=== PATIENT | female | born 1965 | race Caucasian/White ===

== ENCOUNTER 2016-05-26 17:22 | Emergency (ER) | payer OTHER ==
[~2016-05-26] VITALS: Ht 162.6 cm; Wt 82.0 kg
[~2016-05-26 17:22] MED LIST: ALBU8.5H3 INH; ALLERGY MED; ANXIETY MED; BACTDS PO; CEPH-443 PO; IBUP-1542 PO; PANT40TA4 PO; PRED20TA PO; [UNRECOGNIZED DRUG - REMARK]; [UNRECOGNIZED DRUG - REMARK]
[2016-05-26 17:25] VITALS: Ht 162.6 cm; Wt 82.0 kg
[2016-05-26] MEDS ORDERED: KETOROLAC 30 MG INJ IV STA ×2 (18:53→21:25)
[2016-05-26] MEDS ORDERED: SOD CHLORIDE 0.9% 1,000 ML IV STA (18:53)
[2016-05-26] MEDS ORDERED: ONDANSETRON 4 MG INJ IV STA (18:53)
[2016-05-26 19:26] LABS: ADD SCAN DIFF NO
[2016-05-26 19:27] LABS: BASOPHILS % 0.1 % (0.0-2.0); EOSINOPHILS # 0.1 10^3/ul (0.0-0.5); EOSINOPHILS % 1.8 % (0.0-7.0); HEMATOCRIT 36.5 % (37.0-47.0); HEMOGLOBIN 10.7 g/dl (12.0-16.0); LYMPHOCYTES # 2.9 10^3/ul (0.8-2.9); LYMPHOCYTES % 37.3 % (15.0-51.0); MEAN CORPUSCULAR HEMOGLOBIN 20.9 pg (29.0-33.0); MEAN CORPUSCULAR HGB CONC 29.3 g/dl (32.0-37.0); MEAN CORPUSCULAR VOLUME 71.4 fl (82.0-101.0); MEAN PLATELET VOLUME 11.7 fl (7.4-10.4); MONOCYTE # 0.6 10^3/ul (0.3-0.9); MONOCYTES % 7.4 % (0.0-11.0); NEUTROPHIL # 4.1 10^3/ul (1.6-7.5); NEUTROPHILS % 53.3 % (39.0-77.0); PLATELET COUNT 274 10^3/UL (140-415); RED BLOOD COUNT 5.11 10^6/ul (4.20-5.40); RED CELL DISTRIBUTION WIDTH 16.9 % (11.5-14.5); WHITE BLOOD COUNT 7.7 10^3/ul (4.8-10.8)
[2016-05-26] MEDS ORDERED: morphine 4 MG/ML VIAL IV STA (19:31)
[2016-05-26 19:42] LABS: ALBUMIN 4.5 g/dl (3.3-4.9)
[2016-05-26 19:43] LABS: POTASSIUM 3.6 mmol/L (3.5-5.1)
[2016-05-26 19:45] LABS: ALBUMIN/GLOBULIN RATIO 1.21; BILIRUBIN,INDIRECT 0.6 mg/dl (0-1.1); BILIRUBIN,TOTAL 0.6 mg/dl (0.2-1.3); CREATININE 0.64 mg/dl (0.44-1.00); TOTAL PROTEIN 8.2 g/dl (6.1-8.1)
[2016-05-26 19:46] LABS: CALCIUM 9.3 mg/dl (8.4-10.2)
--- NOTE | 2016-05-26 20:09 | ERD ---
ER Documentation Chief Complaint Date/Time DATE: 05/26/16 TIME: 20:06 Chief Complaint ABDOMINAL PAIN WITH NAUSEA SINCE THURSDAY HPI Patient is a 50-year-old female with past medical history of asthma, migraine headaches, depression who presents to the emergency department with lower abdominal pain 9 days. Patient states the pain is primarily in the bilateral lower quadrants and suprapubic region. Patient states the pain is constant. Patient states that her current pain level is a 10 out of 10. Patient reports taking Tylenol with minimal alleviation of symptoms. Patient admits to nausea however she denies any vomiting. Patient denies any fevers, chills, chest pain , shortness of breath, pain with urination, diarrhea. Patient reports normal bowel movements. Last bowel movement 2 hours ago. Patient states she is currently on her menstrual period. ROS All systems reviewed and are negative except as per history of present illness. Medications Home Meds Active Scripts Ibuprofen* (Motrin*) 600 Mg Tab, 600 MG PO Q6, #30 TAB Prov:FRACISCO SANTIAGO PA-C 05/26/16 Ibuprofen* (Motrin*) 600 Mg Tab, 600 MG PO Q6, #20 TAB Prov:GREGORIA MARTINES PA-C 07/09/15 Albuterol Sulfate* (Proair HFA*) 8.5 Gm Hfa.aer.ad, 2 PUFF INH Q4, #1 INHALER Prov:GREGORIA MARTINES PA-C 07/09/15 Prednisone* (Prednisone*) 20 Mg Tab, 40 MG PO DAILY for 4 Days, TAB Prov:GREGORIA MARTINES PA-C 07/09/15 Cephalexin* (Keflex*) 500 Mg Capsule, 500 MG PO Q6 for 7 Days, CAP Prov:GEREMIAS TONY 01/16/15 Sulfamethoxazole-Trimethoprim* (Bactrim* DS) 800-160 Mg Tab, 1 TAB PO BID for 7 Days, TAB Prov:GEREMIAS TONY 01/16/15 Pantoprazole (Protonix) 40 Mg Tabec, 40 MG PO DAILY for GASTROINTESTINAL UPSET, #60 Prov:VINITA HERNÁNDEZ MD 11/01/13 Reported Medications [Inhaler?] No Conflict Check 10/30/11 [Pain Med?] No Conflict Check 10/30/11 [Allergy Med] No Conflict Check 10/30/11 [Anxiety Med] No Conflict Check 10/30/11 Allergies Allergies: Coded Allergies: No Known Allergy (Verified , 05/26/16) PMhx/Soc History of Surgery: Yes ( 2008) Anesthesia Reaction: No Hx Neurological Disorder: No Hx Respiratory Disorders: Yes (ASTHMA) Hx Cardiac Disorders: No Hx Psychiatric Problems: No Hx Miscellaneous Medical Probl: No Hx Alcohol Use: No Hx Substance Use: No Hx Tobacco Use: No Smoking Status: Never smoker FmHx Family History: diabetes Physical Exam Vitals Vital Signs Date Time Temp Pulse Resp B/P Pulse Ox O2 Delivery O2 Flow Rate FiO2 05/27/16 02:37 98.9 77 17 116/56 99 Room Air 05/26/16 17:25 98.3 89 18 126/71 96 Physical Exam GENERAL: Well-developed, well-nourished female. Appears in no acute distress. HEAD: Normocephalic, atraumatic. EYES: Pupils are equally reactive bilaterally. EOMs grossly intact. No conjunctival erythema. ENT: Moist mucous membranes. No uvula deviation. No kissing tonsils. NECK: Supple. No meningismus. Normal range of motion of the neck. LUNG: Clear to auscultation bilaterally. No rhonchi, wheezing, rales or coarse breath sounds. HEART: Regular rate and rhythm. No murmurs, rubs or gallops. ABDOMEN: No scars, ecchymosis or rashes noted. Soft, nondistended. Tender to palpation in the bilateral lower quadrants, suprapubic region. Positive bowel sounds in all four quadrants. No rebound tenderness, no guarding. (-) McBurney' s point tenderness. No CVA tenderness. BACK: No midline tenderness. EXTREMITIES: Equal pulses bilaterally. No peripheral clubbing, cyanosis or edema. No unilateral leg swelling. NEUROLOGIC: Alert and oriented. Moving all four extremities without any difficulty. Normal speech. Steady gait. SKIN: Normal color. Warm and dry. No rashes or lesions. Result Diagram: 05/26/16192405/26/161924 Results 24 hrs Laboratory Tests Test 05/26/16 19:25 05/26/16 22:27 White Blood Count 7.710^3/ul Red Blood Count 5.1110^6/ul Hemoglobin 10.7g/dl Hematocrit 36.5% Mean Corpuscular Volume 71.4fl Mean Corpuscular Hemoglobin 20.9pg Mean Corpuscular Hemoglobin Concent 29.3g/dl Red Cell Distribution Width 16.9% Platelet Count 14849^3/UL Mean Platelet Volume 11.7fl Neutrophils % 53.3% Lymphocytes % 37.3% Monocytes % 7.4% Eosinophils % 1.8% Basophils % 0.1% Nucleated Red Blood Cells % 0.0/100WBC Neutrophils # 4.110^3/ul Lymphocytes # 2.910^3/ul Monocytes # 0.610^3/ul Eosinophils # 0.110^3/ul Basophils # 0.010^3/ul Nucleated Red Blood Cells # 0.010^3/ul Sodium Level 140mmol/L Potassium Level 3.6mmol/L Chloride Level 103mmol/L Carbon Dioxide Level 25mmol/L Anion Gap 16 Blood Urea Nitrogen 11mg/dl Creatinine 0.64mg/dl Glucose Level 96mg/dl Calcium Level 9.3mg/dl Total Bilirubin 0.6mg/dl Direct Bilirubin 0.00mg/dl Indirect Bilirubin 0.6mg/dl Aspartate Amino Transf (AST/SGOT) 28IU/L Alanine Aminotransferase (ALT/SGPT) 36IU/L Alkaline Phosphatase 98IU/L Total Protein 8.2g/dl Albumin 4.5g/dl Globulin 3.70g/dl Albumin/Globulin Ratio 1.21 Lipase 72U/L Bedside Urine pH (LAB) 6.5 Bedside Urine Protein (LAB) Negative Bedside Urine Glucose (UA) Negative Bedside Urine Ketones (LAB) Negative Bedside Urine Blood 1+ Bedside Urine Nitrite (LAB) Negative Bedside Urine Leukocyte Esterase (L Negative Current Medications Medications (Trade) Dose Ordered Sig/Alexandro Route PRN Reason Start Time Stop Time Status Last Admin Dose Admin Sodium Chloride (NS) 1,000 ml @ 1,000 mls/hr Q1H STAT IV 05/26/16 18:53 05/26/16 19:52 DC 05/26/16 19:20 Ondansetron HCl (Zofran Inj) 4 mg ONCE STAT IV 05/26/16 18:53 05/26/16 18:56 DC 05/26/16 19:20 Ketorolac Tromethamine (Toradol) 30 mg ONCE STAT IV 05/26/16 18:53 05/26/16 19:33 DC Morphine Sulfate (morphine) 4 mg ONCE STAT IV 05/26/16 19:31 05/26/16 19:32 DC 05/26/16 19:35 Ketorolac Tromethamine (Toradol) 30 mg ONCE STAT IV 05/26/16 21:25 05/26/16 21:26 DC 05/26/16 21:29 Procedures/MDM ED COURSE: The patient was stable throughout ED course. I kept the patient and/or family informed of laboratory and diagnostic imaging results throughout the ED course. Initially orders were placed for Toradol. Patient was unable provide urine sample and stated that Toradol would not help with her pain. Patient requested stronger pain meds. Prior to administrating the morphine to the patient, myself as well as the nursing staff both individually asked the patient to ensure that she had a ride home for the safety of all including herself and her daughters. Patient stated that her older daughter would come to pick her and her family up at time of discharge. At that time, morphine order was placed. Upon reexamining the patient and discussing blood work and CT results with the patient, patient stated that she continued to have severe pain. Patient requested additional pain medications. Patient wished for pelvic ultrasound. I myself asked the patient if her daughter was still on her way. At that time, patient stated that her daughter was "still on her way" but had not arrived yet because of the "results pending." Pelvic US was ordered and orders placed for Toradol. Soon after, community service technician arrived to take patient for pelvic ultrasound study. At that time, patient refused ultrasound and stated she wished to go home. I advised the patient that I or nursing staff would need to see her older daughter to prior to discharging the patient. At that time, patient was augmentative and said "her older daughter was waiting for her and left because it took too long to get her discharge paperwork. It is unclear whether or not the patient's daughter did present to the ED or not. Given that the patient did have her younger daughters with her, the patient was not discharged until greater than 6 hours after receiving the morphine. Patient appeared stable at the time of discharge. Patient was A x O x 3, fully coherent. DIAGNOSTIC IMAGING: Read by radiologist. DIAGNOSTIC IMAGING REPORT Patient: TIFFANY CHOU : 1965 Age: 50 Sex: F MR #: [id number] DOS: 05/26/16 1853 Ordering MD: FRACISCO SANTIAGO PA-C Location: [facility] Room/Bed: PROCEDURE: CT Abdomen and Pelvis without contrast CLINICAL INDICATION: Abdominal pain TECHNIQUE: Transaxial images were obtained through the abdomen and pelvis on a multi-slice scanner without the intravenous contrast administration. No oral contrast had previously been given. Sagittal and coronal re-formations were subsequently reconstructed. One or more of the following dose reduction techniques were used: - Automated exposure control. - Adjustment of the mA and/or kV according to patient size. - Use of iterative reconstruction technique. Radiation dose: CTDIvol = 16.61 mGy; DLP = 907.32 mGy-cm. COMPARISON: 01/16/2015 FINDINGS: Lung bases: The visualized lung bases appear unremarkable. Liver: The liver is enlarged but no focal lesion is identified. Gallbladder: The wall is not thickened. No radiopaque stones are identified. Bile ducts: The intra and extrahepatic bile ducts are normal in caliber. Pancreas: Appears normal with no mass or inflammation evident. Spleen: Normal in size with no focal lesion. Adrenals: Normal with no mass identified. Kidneys, ureters and bladder: The kidneys are normal in size and there is no mass, pathological calcification, or hydronephrosis evident. There is no perinephric stranding. The ureters are normal in caliber and no ureteroliths are identified. The bladder appears unremarkable. Reproductive organs: The uterus remains midline. No adnexal mass is evident. Stomach and bowel: There is a moderate sized hiatal hernia. There is no evidence of bowel obstruction or inflammation. Appendix: There appears to be a previous appendectomy. Peritoneum: No free intraperitoneal fluid or air is identified. Aorta: Normal in caliber with no aneurysmal dilatation. IVC: Unremarkable. Lymph nodes: No pathologically enlarged nodes are identified. Osseous structures: Exaggerated lordotic curve to the lumbar spine with mild degenerative endplate changes. IMPRESSION: 1. Since the previous CT of 01/16/2015, there is again a moderate sized hiatal hernia. There is no evidence of bowel obstruction or inflammation and there appears to have been an interval appendectomy. 2. Persistent hepatomegaly with no focal lesion. 3. There is again no evidence of urinary outflow obstruction or ureterolithiasis within normal appearing bladder. 4. There is no longer a right anterolateral dermal abscess at the level of the pelvic inlet and there is no longer inflammation within the adjacent subcutaneous fat. 5. There is again an exaggerated lordotic curve to the lumbar spine with mild degenerative changes evident. Physician Trace Date Time Electronically viewed and signed by Physician Trace on 05/26/2016 20:58 RH/ CC: FRACISCO SANTIAGO PA-C PROCEDURES: None. MEDICATIONS GIVEN: IV fluids, Zofran, Morphine, Toradol. Patient tolerated medication well with no adverse reactions. MEDICAL DECISION MAKING: This is a 50-year-old female who presents with lower abdominal pain 7 days with nausea.. Vital signs were reviewed. Patient is afebrile. CBC showed no evidence of systemic infection. Patient's hemoglobin level was noted to be 10.7 , hematocrit of 36.5. CMP showed no evidence of electrolyte abnormalities, severe acidosis, alkalosis, renal failure, or liver disease. Lipase showed no evidence of acute pancreatitis. UA showed no evidence of acute infection or hematuria. Low suspicion for UTI, pyelonephritis or nephrolithiasis. Urine test was negative. . CT imaging of the abdomen and pelvis showed Since the previous CT of 01/16/2015, there is again a moderate sized hiatal hernia. There is no evidence of bowel obstruction or inflammation and there appears to have been an interval appendectomy. Persistent hepatomegaly with no focal lesion. There is again no evidence of urinary outflow obstruction or ureterolithiasis within normal appearing bladder. There is no longer a right anterolateral dermal abscess at the level of the pelvic inlet and there is no longer inflammation within the adjacent subcutaneous fat. There is again an exaggerated lordotic curve to the lumbar spine with mild degenerative changes evident. At this time, patient's presentation is most consistent with abdominal pain of unknown etiology. Cannot rule out PID, ovarian torsion or abscess given that patient refused pelvic ultrasound. I have a much lower clinical concern for acute coronary syndrome, AAA, mesenteric ischemia, lower lobe pneumonia, DKA, bowel perforation, cholecystitis, choledocholithiasis, ascending cholangitis, hepatic abscess, pancreatitis, PUD, gastritis, GERD, splenic rupture, diverticulitis, UTI, pyelonephritis, nephrolithiasis. PRESCRIPTIONS: Ibuprofen DISCHARGE: At this time, patient is stable for discharge and outpatient management. I have instructed the patient to follow-up with his/her primary care physician in 1-2 days. Patient was given a copy of all imaging and blood work obtained today. Patient advised that she may need to follow up with GI specialist for her symptoms. I have instructed the patient to promptly return to the ER at any time for any new or worsening symptoms including increased pain, nausea, vomiting, diarrhea, fever, weakness or LOC. The patient and/or family expressed understanding of and agreement with this plan. All questions were answered. Home care instructions were provided. Departure Diagnosis: Primary Impression: Abdominal pain Abdominal location: lower abdomen, unspecified Qualified Code: R10.30 - Lower abdominal pain Condition: Stable Patient Instructions: Abdominal Pain Referrals: JANNA WALL (PCP) [facility] YOU HAVE RECEIVED A MEDICAL SCREENING EXAM AND THE RESULTS INDICATE THAT YOU DO NOT HAVE A CONDITION THAT REQUIRES URGENT TREATMENT IN THE EMERGENCY DEPARTMENT. FURTHER EVALUATION AND TREATMENT OF YOUR CONDITION CAN WAIT UNTIL YOU ARE SEEN IN YOUR DOCTORS OFFICE WITHIN THE NEXT 1-2 DAYS. IT IS YOUR RESPONSIBILITY TO MAKE AN APPOINTMENT FOR FOLOW-UP CARE. IF YOU HAVE A PRIMARY DOCTOR --you should call your primary doctor and schedule an appointment IF YOU DO NOT HAVE A PRIMARY DOCTOR YOU CAN CALL OUR PHYSICIAN REFERRAL HOTLINE AT IF YOU CAN NOT AFFORD TO SEE A PHYSICIAN YOU CAN CHOSE FROM THE FOLLOWING [facility] [address] [facility]. [facility] [address] [facility] [address] [facility] [address] [facility] [address] [facility]. [facility]. [address] [facility]. [facility] YOU HAVE RECEIVED A MEDICAL SCREENING EXAM AND THE RESULTS INDICATE THAT YOU DO NOT HAVE A CONDITION THAT REQUIRES URGENT TREATMENT IN THE EMERGENCY DEPARTMENT. FURTHER EVALUATION AND TREATMENT OF YOUR CONDITION CAN WAIT UNTIL YOU ARE SEEN IN YOUR DOCTORS OFFICE WITHIN THE NEXT 1-2 DAYS. IT IS YOUR RESPONSIBILITY TO MAKE AN APPOINTMENT FOR FOLOW-UP CARE. IF YOU HAVE A PRIMARY DOCTOR --you should call your primary doctor and schedule and appointment IF YOU DO NOT HAVE A PRIMARY DOCTOR YOU CAN CALL OUR PHYSICIAN REFERRAL HOTLINE AT . IF YOU CAN NOT AFFORD TO SEE A PHYSICIAN YOU CAN CHOSE FROM THE FOLLOWING [facility] INSTITUTIONS: [facility] [address] [place] [address] [facility] [address] [place] [address] [facility] [address] [place] [address] Additional Instructions: Llame al doctor MAANA y lisbeth ernesto ISABEL PARA DENTRO DE 1-2 PEDROZA.Dgale a la secretaria que nosotros le instruimos hacer esta isabel.Avise o llame si garcia condicin se empeora antes de la isabel. Regresa aqui si peor o no mejor. FRACISCO SANTIAGO PA-C May 26, 2016 20:09 FRACISCO SANTIAGO PA-C May 26, 2016 20:09
--- NOTE | 2016-05-26 20:58 | RADRPT ---
PROCEDURE: CT Abdomen and Pelvis without contrast CLINICAL INDICATION: Abdominal pain TECHNIQUE: Transaxial images were obtained through the abdomen and pelvis on a multi-slice scanner without the intravenous contrast administration. No oral contrast had previously been given. Sagit valentina and coronal re-formations were subsequently reconstructed. One or more of the following dose reduction techniques were used: - Automated exposure control. - Adjustment of the mA and/or kV according to patient size. - Use of iterative reconstruction technique. Radiation dose: CTDIvol = 16.61 mGy; DLP = 907.32 mGy-cm. COMPARISON: 01/16/2015 FINDINGS: Lung bases: The visualized lung bases appear unremarkable. Liver: The liver is enlarged but no focal lesion is identified. Gallbladder: The wall is not thickened. No radiopaque stones are identified. Bile ducts: The intra and extrahepatic bile ducts are normal in caliber. Pancreas: Appears normal with no mass or inflammation evident. Spleen: Normal in size with no focal lesion. Adrenals: Normal with no mass identified. Kidneys, ureters and bladder: The kidneys are normal in size and there is no mass, pathological calc ification, or hydronephrosis evident. There is no perinephric stranding. The ureters are normal in c aliber and no ureteroliths are identified. The bladder appears unremarkable. Reproductive organs: The uterus remains midline. No adnexal mass is evident. Stomach and bowel: There is a moderate sized hiatal hernia. There is no evidence of bowel obstructi on or inflammation. Appendix: There appears to be a previous appendectomy. Peritoneum: No free intraperitoneal fluid or air is identified. Aorta: Normal in caliber with no aneurysmal dilatation. IVC: Unremarkable. Lymph nodes: No pathologically enlarged nodes are identified. Osseous structures: Exaggerated lordotic curve to the lumbar spine with mild degenerative endplate c hanges. IMPRESSION: 1. Since the previous CT of 01/16/2015, there is again a moderate sized hiatal hernia. There is no evidence of bowel obstruction or inflammation and there appears to have been an interval appendecto my. 2. Persistent hepatomegaly with no focal lesion. 3. There is again no evidence of urinary outflow obstruction or ureterolithiasis within normal appe aring bladder. 4. There is no longer a right anterolateral dermal abscess at the level of the pelvic inlet and the re is no longer inflammation within the adjacent subcutaneous fat. 5. There is again an exaggerated lordotic curve to the lumbar spine with mild degenerative changes evident. Georgina Mc Physician Date Time Electronically viewed and signed by Georgina Mc Physician on 05/26/2016 20:58 /
[2016-05-26 22:27] LABS: URINE BLOOD (Dip) POC 1+ (NEGATIVE)
[2016-05-26] MEDS ORDERED: IBUP-1542 PO (23:23)
[2016-05-27 02:37] VITALS: BP 116/56; PULSE 77; RESP 17; TEMP 98.9
== END 2016-05-27 02:38 | disposition home or self-care (01) ==
LOC: FTE 17:22
DX: R10.30 Lower abdominal pain, unspecified (principal); J45.909 Unspecified asthma, uncomplicated; R10.2 Pelvic and perineal pain; R11.0 Nausea
CPT/HCPCS: 36415; 74176; 80053; 81003; 83690; 85025; 96374; 96375; J2270; J2405; J7030; Z7502; J1885

== ENCOUNTER 2017-01-01 15:25 | Emergency (ER) | payer OTHER ==
[~2017-01-01] VITALS: Ht 157.5 cm; Wt 86.4 kg
[2017-01-01 15:36] VITALS: Ht 157.5 cm; Wt 86.4 kg
--- NOTE | 2017-01-01 16:51 | ERD ---
ER Documentation Chief Complaint Chief Complaint BIB SELF C/O COUGH AND CONGESTION X YESTERDAY. CHEST PAIN AND SOB W COUGH HPI This is a 51 year-old female who presents the emergency department today complaining of shortness of breath and a cough congestion that started last night. Patient states that she does have some chest pain but it is provoked by the cough. States she has not taken any medication. States that she does have a history of asthma and uses an inhaler. States she thinks she has had a fever. States she has some body ache ROS All systems reviewed and are negative except as per history of present illness. Medications Home Meds Active Scripts Fluticasone Propionate (Flonase Allergy Relief) 9.9 Ml [place].susp, 2 SPRAY NASAL DAILY, #1 BOTTLE TO EACH NOSTRIL Prov:DOTTIE CHRISTIAN PA-C 01/01/17 Guaifenesin-Dextromethorphan* (Robitussin* DM) 100MG/10MG/5ML Syrup, 10 ML PO Q6H Y for COUGH for 7 Days, ML Prov:DOTTIE CHRISTIAN PA-C 01/01/17 Naproxen* (Naprosyn*) 500 Mg Tablet, 500 MG PO BID Y for PAIN AND/OR INFLAMMATION, #30 TAB Prov:DOTTIE CHRISTIAN PA-C 01/01/17 Ibuprofen* (Motrin*) 600 Mg Tab, 600 MG PO Q6, #30 TAB Prov:FRACISCO SANTIAGO PA-C 05/26/16 Ibuprofen* (Motrin*) 600 Mg Tab, 600 MG PO Q6, #20 TAB Prov:GREGORIA MARTINES PA-C 07/09/15 Albuterol Sulfate* (Proair HFA*) 8.5 Gm Hfa.aer.ad, 2 PUFF INH Q4, #1 INHALER Prov:GREGORIA MARTINES PA-C 07/09/15 Prednisone* (Prednisone*) 20 Mg Tab, 40 MG PO DAILY for 4 Days, TAB Prov:GREGORIA MARTINES PA-C 07/09/15 Cephalexin* (Keflex*) 500 Mg Capsule, 500 MG PO Q6 for 7 Days, CAP Prov:GEREMIAS TONY 01/16/15 Sulfamethoxazole-Trimethoprim* (Bactrim* DS) 800-160 Mg Tab, 1 TAB PO BID for 7 Days, TAB Prov:GEREMIAS TONY 01/16/15 Pantoprazole (Protonix) 40 Mg Tabec, 40 MG PO DAILY for GASTROINTESTINAL UPSET, #60 Prov:VINITA HERNÁNDEZ MD 11/01/13 Reported Medications [Inhaler?] No Conflict Check 10/30/11 [Pain Med?] No Conflict Check 10/30/11 [Allergy Med] No Conflict Check 10/30/11 [Anxiety Med] No Conflict Check 10/30/11 Allergies Allergies: Coded Allergies: No Known Allergy (Verified , 05/26/16) PMhx/Soc History of Surgery: Yes ( 2007) Anesthesia Reaction: No Hx Neurological Disorder: No Hx Respiratory Disorders: Yes (ASTHMA) Hx Cardiac Disorders: No Hx Psychiatric Problems: No Hx Miscellaneous Medical Probl: No Hx Alcohol Use: No Hx Substance Use: No Hx Tobacco Use: No Physical Exam Vitals Vital Signs Date Time Temp Pulse Resp B/P Pulse Ox O2 Delivery O2 Flow Rate FiO2 01/01/17 17:58 98.6 86 18 120/70 98 Room Air 01/01/17 15:36 99.0 110 20 143/84 98 Physical Exam Const: NAD Head: Atraumatic Eyes: Normal Conjunctiva ENT: Ears TMs normal. Nose no drainage. Throat erythema no exudate no vesicles Neck: Full range of motion..~ No meningismus. Resp: Clear to auscultation bilaterally. No absent breath sounds. No wheezing Cardio: Regular rate and rhythm, no murmurs Abd: Soft, non tender, non distended. Normal bowel sounds Skin: No petechiae or rashes Back: No midline or flank tenderness Ext: No cyanosis, or edema Neur: Awake and alert Psych: Normal Mood and Affect Results 24 hrs Current Medications Medications (Trade) Dose Ordered Sig/Alexandro Route PRN Reason Start Time Stop Time Status Last Admin Dose Admin Ibuprofen (Motrin) 600 mg ONCE ONCE PO 01/01/17 17:00 01/01/17 17:01 DC 01/01/17 18:39 DIAGNOSTIC IMAGING REPORT Patient: TIFFANY CHOU : 1965 Age: 51 Sex: F MR #: [id number] DOS: 01/01/17 9199 Ordering MD: DOTTIE CHRISTIAN PA-C Location: [facility] Room/Bed: PROCEDURE: Chest x-ray CLINICAL INDICATION: Cough TECHNIQUE: Chest single view COMPARISON: 07/09/2015 FINDINGS: The heart is normal in size. The pulmonary vessels are normal in caliber. There is stable moderate size hiatal hernia. The lungs are clear. The costophrenic angles are sharp. The visualized bony thorax is unremarkable. IMPRESSION: No acute cardiopulmonary disease. Stable hiatal hernia RPTAT: HH .Chris Savage MD, MD Date Time Electronically viewed and signed by .Chris Savage MD, MD on 01/01/2017 17:14 .W/ CC: DOTTIE CHRISTIAN PA-C RUN DATE: 01/01/17 [facility] PAGE 1 RUN TIME: [id number] [place] [address] Urbano Covington M.D. [employer] RADHA#: [id number] Name: TIFFANY CHOU Age/Sex: 51/F Attend Dr: JALIL ESPINOZA DO Acct: [id number] MR# : [id number] : 1965 Location: [facility] Admit: 01/01/17 Specimen: [id number] Status: Complete Jenn: 01/01/17 Rcvd: 01/01 Source: [facility] Blue Descrip: Procedure Result Microbiology INFLUENZA A & B BY EIA Final INFLU A&B BY EIA INFLUENZA A NEGATIVE (Ref Range Neg) INFLUENZA B NEGATIVE (Ref Range Neg) ................................................................................ ............ Flags: Critical Hi = *H Critical Lo = *L Microbiology Abnormal = * Abnormal Hi = H Abnormal Lo = L Blood Bank Abnormal = * Susceptability Flags: S = Sensitive R = Resistant I = Intermediate END OF REPORT Procedures/MDM This is a 51-year-old female who presents emergency department today complaining of cough and congestion and shortness of breath that started last night. Patient is afebrile here in the emergency department. She was slightly tachycardic however oxygen saturation is 98%. I did recheck vitals as well as obtain an influenza swab and chest x-ray Repeat vitals showed pulse improved to 86 and oxygen saturation was maintained at 98%. Influenza a and B is negative Chest x -ray no acute pulmonary disease. Lungs are clear. There is a stable hiatal hernia. EKG interpreted by Dr. Nash rate [address] elevation. No QT prolongation. Nonspecific repol changes Low suspicion for STEMI Patient takes [place] for chronic back pain. She was given Motrin here in the emergency department. Symptoms at this time is consistent with URI likely viral. Will be given a prescription for Naprosyn, Flonase, and Robitussin. I do not feel the patient requires antibiotics at this time. Low suspicion for pneumonia, PE, abscess, pleural effusion, pneumothorax. I discussed the patient with Dr. Espinoza and he does not put the patient requires further workup at this time. Departure Diagnosis: Primary Impression: URI (upper respiratory infection) URI type: unspecified URI Qualified Code: J06.9 - Upper respiratory tract infection, unspecified type Condition: DOTTIE Luna PA-C Jan 01, 2017 16:51
[2017-01-01] MEDS ORDERED: IBUPROFEN 600 MG TAB PO ONE (17:00)
--- NOTE | 2017-01-01 17:15 | RADRPT ---
PROCEDURE: Chest x-ray CLINICAL INDICATION: Cough TECHNIQUE: Chest single view COMPARISON: 07/09/2015 FINDINGS: The heart is normal in size. The pulmonary vessels are normal in caliber. There is stable moderate size hiatal hernia. The lungs are clear. The costophrenic angles are sharp. The visualized bony th orax is unremarkable. IMPRESSION: No acute cardiopulmonary disease. Stable hiatal hernia RPTAT: HH .Chris Savage MD, MD Date Time Electronically viewed and signed by .Chris Savage MD, on 01/01/2017 17:14 .W/
[2017-01-01 17:58] VITALS: BP 120/70; PULSE 86; RESP 18; TEMP 98.6
[2017-01-01] MEDS ORDERED: NAPR-260 PO (19:04)
[2017-01-01] MEDS ORDERED: FLUT9.9S NASAL (19:05)
[2017-01-01] MEDS ORDERED: UDROBDM PO (19:05)
--- NOTE | 2017-01-03 19:38 | EN ---
Date/Time of Note Date/Time of Note DATE: 01/03/17 TIME: 19:31 ER Progress Note I placed a call to the patient today to check to see how she was feeling and patient reported feeling much better. DOTTIE CHRISTIAN PA-C Jan 03, 2017 19:38
== END 2017-01-01 19:13 | disposition home or self-care (01) ==
LOC: FTE 15:25
DX: J06.9 Acute upper respiratory infection, unspecified (principal); J45.909 Unspecified asthma, uncomplicated
CPT/HCPCS: 71010; 87400; Z7502; Z7610

== ENCOUNTER 2017-01-13 11:35 | Emergency (ER) | payer OTHER ==
[~2017-01-13] VITALS: Ht 165.1 cm; Wt 70.0 kg
[~2017-01-13 11:35] MED LIST changes: +FLUT9.9S NASAL; +NAPR-260 PO; +UDROBDM PO
[2017-01-13 11:50] VITALS: Ht 165.1 cm; Wt 70.0 kg
[2017-01-13] MEDS ORDERED: SOD CHLORIDE 0.9% 1,000 ML IV STA (11:51)
[2017-01-13] MEDS ORDERED: ONDANSETRON 4 MG INJ IV STA (11:51)
[2017-01-13] MEDS ORDERED: morphine 4 MG/ML VIAL IV STA (11:51)
[2017-01-13] MEDS ORDERED: KETOROLAC 30 MG INJ IV STA (12:35)
[2017-01-13] MEDS ORDERED: DIAZEPAM 5 MG/ML SYG IV ONE (13:00)
--- NOTE | 2017-01-13 13:26 | RADRPT ---
PROCEDURE: XR Lumbar Spine. CLINICAL INDICATION: Fall. Low back pain. TECHNIQUE: Three views of the lumbar spine are available for review COMPARISON: Abdomen pelvis CT 05/26/2016. FINDINGS: There is exaggeration of normal lumbar lordosis. Alignment is intact. No acute fracture or disloca tion is seen. The vertebral body heights are preserved. There are multilevel mild degenerative changes of lumbar s pine, most pronounced at L1-L2. There is moderate to severe discogenic disease at T11-T12 with assoc iated mild focal kyphosis. IMPRESSION: 1. No acute fracture or dislocation. 2. Multilevel discogenic disease, mild at L1-L2 and moderately severe at T11-T12. 3. Exaggerated lordosis of the lumbar spine. Mild focal kyphosis at T11-T12. RPTAT: HH .Shaylee Duggan MD, Date Time Electronically viewed and signed by .Shaylee Duggan MD, on 01/13/2017 13:25 .N/
--- NOTE | 2017-01-13 13:33 | ERD ---
ER Documentation Chief Complaint Chief Complaint BACK PAIN X 2 DAYS. HPI This is a 51-year-old female who presents to the ER for evaluation of back pain. This patient states that she slipped 2 days ago and fell on her back. She denies any head injury and states that she is having pain in her lower back. She states it is worse when she bends forward and better when she leans back. She denies any numbness or tingling in her lower extremities, denies any dizziness or any fevers or chills or urinary incontinence or urinary retention associated with this. ROS All systems reviewed and are negative except as per history of present illness. Medications Home Meds Active Scripts Fluticasone Propionate (Flonase Allergy Relief) 9.9 Ml [employer].susp, 2 SPRAY NASAL DAILY, #1 BOTTLE TO EACH NOSTRIL Prov:DOTTIE CHRISTIAN PA-C 01/01/17 Guaifenesin-Dextromethorphan* (Robitussin* DM) 100MG/10MG/5ML Syrup, 10 ML PO Q6H Y for COUGH for 7 Days, ML Prov:DOTTIE CHRISTIAN PA-C 01/01/17 Naproxen* (Naprosyn*) 500 Mg Tablet, 500 MG PO BID Y for PAIN AND/OR INFLAMMATION, #30 TAB Prov:DOTTIE CHRISTIAN PA-C 01/01/17 Ibuprofen* (Motrin*) 600 Mg Tab, 600 MG PO Q6, #30 TAB Prov:FRACISCO SANTIAGO PA-C 05/26/16 Ibuprofen* (Motrin*) 600 Mg Tab, 600 MG PO Q6, #20 TAB Prov:GREGORIA MARTINES PA-C 07/09/15 Albuterol Sulfate* (Proair HFA*) 8.5 Gm Hfa.aer.ad, 2 PUFF INH Q4, #1 INHALER Prov:GREGORIA MARTINES PA-C 07/09/15 Prednisone* (Prednisone*) 20 Mg Tab, 40 MG PO DAILY for 4 Days, TAB Prov:GREGORIA MARTINES PA-C 07/09/15 Cephalexin* (Keflex*) 500 Mg Capsule, 500 MG PO Q6 for 7 Days, CAP Prov:GEREMIAS TONY 01/16/15 Sulfamethoxazole-Trimethoprim* (Bactrim* DS) 800-160 Mg Tab, 1 TAB PO BID for 7 Days, TAB Prov:GEREMIAS TONY David 01/16/15 Pantoprazole (Protonix) 40 Mg Tabec, 40 MG PO DAILY for GASTROINTESTINAL UPSET, #60 Prov:VINITA HERNÁNDEZ MD 11/01/13 Reported Medications [Inhaler?] No Conflict Check 10/30/11 [Pain Med?] No Conflict Check 10/30/11 [Allergy Med] No Conflict Check 10/30/11 [Anxiety Med] No Conflict Check 10/30/11 Allergies Allergies: Coded Allergies: No Known Allergy (Verified , 05/26/16) PMhx/Soc History of Surgery: Yes ( 2008, gall bladder) Anesthesia Reaction: No Hx Neurological Disorder: No Hx Respiratory Disorders: Yes (ASTHMA) Hx Cardiac Disorders: No Hx Psychiatric Problems: No Hx Miscellaneous Medical Probl: Yes (BACK PAIN) Hx Alcohol Use: No Hx Substance Use: No Hx Tobacco Use: No Smoking Status: Never smoker Physical Exam Vitals Vital Signs Date Time Temp Pulse Resp B/P Pulse Ox O2 Delivery O2 Flow Rate FiO2 01/13/17 11:50 97.9 74 16 134/78 100 Physical Exam INITIAL VITAL SIGNS: Reviewed by me GENERAL: The patient is well developed and appropriate for usual state of health in no apparent distress HEENT: Pupils equal, round, and reactive to light. EOMI. There is no scleral icterus. NECK: C-spine is soft and supple, there is no meningismus. There is no cervical lymphadenopathy. LUNGS: Clear to auscultation bilaterally. There are no rales, wheezes or rhonchi. HEART: Regular rate and rhythm, no murmurs, clicks, rubs or gallops. ABDOMEN: Soft, non-tender, non-distended. There are bowel sounds in all four quadrants. No rebound or guarding. EXTREMITIES: There is no peripheral cyanosis or edema. No focal swelling or erythema. NEUROLOGICAL: The patient moves all four extremities with 5/5 strength. Cranial nerves II - XII are intact. Normal gait. Alert and oriented SKIN: There is no apparent rash or petechiae. Musculoskeletal: Tender to palpation of the paraspinal muscles of the lumbar spine, no mid point tenderness, no step-offs, no gross deformities HEME/LYMPHATIC: There is no evidence of excessive bruising or lymphedema. PSYCHIATRIC: The patient does not appear anxious or depressed. Results 24 hrs Current Medications Medications (Trade) Dose Ordered Sig/Alexandro Route PRN Reason Start Time Stop Time Status Last Admin Dose Admin Morphine Sulfate (morphine) 4 mg ONCE STAT IV 01/13/17 11:51 01/13/17 11:52 DC 01/13/17 12:16 Ondansetron HCl 4 mg 4 mg ONCE STAT IV 01/13/17 11:51 01/13/17 11:52 DC 01/13/17 12:15 Sodium Chloride (NS) 1,000 ml @ 1,000 mls/hr Q1H STAT IV 01/13/17 11:51 01/13/17 12:50 DC 01/13/17 12:16 Diazepam (Valium) 5 mg ONCE ONCE IV 01/13/17 13:00 01/13/17 13:01 DC 01/13/17 12:41 Ketorolac Tromethamine (Toradol) 30 mg ONCE STAT IV 01/13/17 12:35 01/13/17 12:36 DC 01/13/17 12:40 Procedures/MDM X-ray LS-Spine 3V Interpreted by me: Bones: [No fracture] Joints: [No dislocation] Foreign body: [None] This 51-year-old female presents to the emergency room for evaluation of lower back pain. She does state that she was at work and slipped and fell backwards. She states that she is having pain and when I evaluated her the patient did have paraspinal tenderness to palpation. X-ray does not reveal any fractures or obvious abnormality. The patient was given Valium and Toradol with relief of her symptoms. She is likely suffering from a lumbar strain and will be discharged home with a prescription for Motrin, and Viola for breakthrough pain. Patient presents today with back pain. Although infection, malignancy, GI, , and vascular causes have been considered in this patient, the patient's clinical presentation is most consistent with a musculoskeletal cause. There is neither evidence of any acute neurologic damage, nor of loss of function and thus, advanced imaging studies have been deferred. Patient will be treated conservatively with appropriate pain control precautionary discharge instructions provided. Departure Diagnosis: Primary Impression: Acute lumbar myofascial strain Additional Impressions: Back pain Injury of back Condition: MOY Vyas DO Jan 13, 2017 13:33
[2017-01-13] MEDS ORDERED: IBUP800T25 PO (13:34)
[2017-01-13] MEDS ORDERED: HYDR-906 PO (13:34)
[2017-01-13 13:57] VITALS: BP 125/75; PULSE 78; RESP 16; TEMP 98.3
== END 2017-01-13 14:00 | disposition home or self-care (01) ==
LOC: E/R 11:35
DX: S39.012A Strain of muscle, fascia and tendon of lower back, initial encounter (principal); J45.909 Unspecified asthma, uncomplicated; W01.0XXA Fall on same level from slipping, tripping and stumbling without subsequent striking against object, initial encounter; Y92.9 Unspecified place or not applicable
CPT/HCPCS: 72100; 96374; 96375; J1885; J2270; J2405; J3360; J7030; Z7502

== ENCOUNTER 2018-04-15 10:34 | Day surgery (SDC) | payer OTHER ==
[~2018-04-15] VITALS: Ht 162.6 cm; Wt 85.4 kg
[~2018-04-15 10:34] MED LIST changes: -ALBU8.5H3 INH; +ALBU8.5H8 INH; +GUAI5SYR2 PO; +HYDR-4011 PO; +IBUP800T48 PO; -NAPR-260 PO; +NAPR-985 PO; -UDROBDM PO
[2018-04-15] MEDS ORDERED: HYDROCORTISONE 100 MG INJ IV STA (13:40)
--- NOTE | 2018-04-15 13:43 | PREAC ---
Date/Time of Note Date/Time of Note DATE: 04/15/18 TIME: 13:41 Anesthesia Eval and Record Evaluation Time Pre-Procedure Interview DATE: 04/15/18 TIME: 13:41 Age 52 Sex female NPO: 8 hrs Preoperative diagnosis Changes of Bowel Habit Planned procedure Colonoscopy Past Medical History Past Medical History: Includes Pulm: Asthma Psych: Depression Surgery & Anesthesia Issues No known issue Meds Anticoagulation: No Beta Terra within 24 hr: No Reason Beta Terra not given: Pt. not on B-Terra Active Scripts Hydrocodone/Acetaminophen (Gregory 5-325 Tablet) 1 Each Tablet, 1 TAB PO Q6H PRN for PAIN, #15 TAB Prov:MOY CHEN DO 01/13/17 Ibuprofen* (Motrin*) 800 Mg Tab, 800 MG PO Q6H PRN for PAIN AND OR ELEVATED TEMP, #30 TAB Prov:MOY CHEN DO 01/13/17 Fluticasone Propionate (Flonase Allergy Relief) 9.9 Ml [place].susp, 2 SPRAY NASAL DAILY, #1 BOTTLE TO EACH NOSTRIL Prov:DOTTIE CHRISTIAN PA-C 01/01/17 Guaifenesin-Dextromethorphan* (Robitussin* DM) 100MG/10MG/5ML Syrup, 10 ML PO Q6H PRN for COUGH for 7 Days, ML Prov:DOTTIE CHRISTIAN PA-C 01/01/17 Naproxen* (Naprosyn*) 500 Mg Tablet, 500 MG PO BID PRN for PAIN AND/OR INFLAMMATION, #30 TAB Prov:DOTTIE CHRISTIAN PA-C 01/01/17 Ibuprofen* (Motrin*) 600 Mg Tab, 600 MG PO Q6, #30 TAB Prov:FRACISCO SANTIAGO PA-C 05/26/16 Ibuprofen* (Motrin*) 600 Mg Tab, 600 MG PO Q6, #20 TAB Prov:GREGORIA MARTINES PA-C 07/09/15 Albuterol Sulfate* (Proair HFA*) 8.5 Gm Hfa.aer.ad, 2 PUFF INH Q4, #1 INHALER Prov:GREGORIA MARTINES PA-C 07/09/15 Prednisone* (Prednisone*) 20 Mg Tab, 40 MG PO DAILY for 4 Days, TAB Prov:GREGORIA MARTINES PA-C 07/09/15 Cephalexin* (Keflex*) 500 Mg Capsule, 500 MG PO Q6 for 7 Days, CAP Prov:GEREMIAS TONY David 01/16/15 Sulfamethoxazole-Trimethoprim* (Bactrim* DS) 800-160 Mg Tab, 1 TAB PO BID for 7 Days, TAB Prov:GEREMIAS TONY David 01/16/15 Pantoprazole (Protonix) 40 Mg Tabec, 40 MG PO DAILY for GASTROINTESTINAL UPSET, #60 Prov:VINITA HERNÁNDEZ MD 11/01/13 Reported Medications [Inhaler?] No Conflict Check 10/30/11 [Pain Med?] No Conflict Check 10/30/11 [Allergy Med] No Conflict Check 10/30/11 [Anxiety Med] No Conflict Check 10/30/11 Meds reviewed: Yes Allergies Coded Allergies: No Known Allergy (Verified , 05/26/16) Allergies Reviewed: Yes Labs/Studies Labs Reviewed: Reviewed by anesthesiologist test: N/A Studies: ECG (n/a), CXR (n/a) Pre-procedure Exam Airway: Adequate mouth opening, Adequate thyromental dist Mallampati: Mallampati II Teeth: Normal Lung: Normal Heart: Normal ASA Physical Status ASA physical status: 2 Emergency: None Planned Anesthetic General/MAC: MAC Planned Pain Management Parenteral pain med Pre-operative Attestations Prior to commencing anesthesia and surgery, the patient was re-evaluated, there was verification of: *The patient's identity *The results of appropriate recent lab work and preoperative vital signs *The above evaluation not changing prior to induction *Anesthetic plan, risk benefits, alternative and complications discussed with patient/family; questions answered; patient/family understands, accepts and wishes to proceed. CARMELA BOJORQUEZ MD Apr 15, 2018 13:43
[2018-04-15 13:53] VITALS: Ht 162.6 cm; Wt 85.4 kg
[2018-04-15] MEDS ORDERED: MIGRAINE MED (13:59)
[2018-04-15] MEDS ORDERED: LORAZEPAM (13:59)
[2018-04-15] MEDS ORDERED: VITAMINS (13:59)
[2018-04-15] MEDS ORDERED: ADVAIR (13:59)
[2018-04-15] MEDS ORDERED: DEPRESSION MEDS (13:59)
[2018-04-15 14:00] VITALS: BP 130/69; PULSE 79; RESP 20
--- NOTE | 2018-04-15 14:35 | PAC ---
Date/Time of Note Date/Time of Note DATE: 04/15/18 TIME: 14:35 Post-Anesthesia Notes Post-Anesthesia Note Last documented vital signs T: 98 Activity: WNL Respiratory function: WNL Cardiovascular function: WNL Mental status: Baseline Pain reasonably controlled: Yes Hydration appropriate: Yes Nausea/Vomiting absent: Yes CARMELA BOJORQUEZ MD Apr 15, 2018 14:35
[2018-04-15 15:02] VITALS: BP 93/54; RESP 22
== END 2018-04-15 15:32 | disposition home or self-care (01) ==
LOC: GIL 10:34
PROVIDERS: ATTEND Internal Medicine Gastroenterology
DX: R19.4 Change in bowel habit (principal); K64.8 Other hemorrhoids; D12.3 Benign neoplasm of transverse colon; J45.909 Unspecified asthma, uncomplicated
CPT/HCPCS: 45385; 88305; J1720; Z7610